=== PATIENT | male | born 1955 | race Caucasian/White ===

== ENCOUNTER 2019-01-28 05:09 | Day surgery (SDC) | payer BC ==
[~2019-01-28] VITALS: Ht 182.9 cm; Wt 107.5 kg
[~2019-01-28 05:09] MED LIST: BAYER CHEWABLE81 MG PO; CBD; MULTI-DAY VITAM1 TAB PO; VITAMIN D31000 UNI2 PO
[2019-01-28 05:38] LABS: HEMATOCRIT 47.2 % (42.0-54.0); HEMOGLOBIN 16.6 g/dL (13.5-17.5); MCH 32.2 pg (26.0-34.0); MCHC 35.2 g/dL (31.0-37.0); MCV 91.5 fL (80.0-100.0); MEAN PLATELET VOLUME 9.9 fL (7.4-10.4); RBC 5.16 10x6/uL (4.20-6.10); RDW 12.4 % (11.5-14.5); WBC 8.6 10x3/uL (4.8-10.8)
[2019-01-28 06:40] VITALS: BP 135/71; Ht 182.9 cm; Wt 107.5 kg
--- NOTE | 2019-01-28 10:24 | OP ---
PATIENT NAME: MAXX HOLDER MEDICAL RECORD: [id number] :57 LOCATION:.FORMERLY [facility] ADMISSION DATE: SURGEON: DEMARIO STROUD MD DATE OF OPERATION: 01/28/2019 SURGEON: Demario Stroud MD ANESTHESIA: TIVA by Raymundo Dietrich CRNA DIAGNOSIS: Elevated PSA of 3.3 on 11/25/2018, bladder outlet obstruction. PROCEDURE: Cystoscopy, transrectal ultrasound and prostate biopsy. FINDINGS: On cystoscopy, bilateral lateral lobe hyperplasia with obstruction, minimal median lobe. Single ureteral orifices bilaterally with no bladder tumors. Transrectal ultrasound 46 gram prostate. SPECIMENS: Prostate biopsy cores. BLOOD LOSS: Minimal. CLINICAL HISTORY: This is a 63-year-old male who has an elevated PSA of 3.3. He has low serum testosterone levels and he is looking to get back on taking supplemental testosterone. He was on supplemental testosterone when he was in [place], [place]. He has some voiding symptoms, namely urgency. There is no family history of prostate cancer. ALLERGIES: He has no drug allergies. 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 DESCRIPTION OF PROCEDURE: The patient was given IV sedation. He was then placed into lithotomy position and prepped and draped. A 21-Nepali cystoscope with 30-degree lens was used for visualization. He does have bilateral lateral lobe obstruction with a relatively long prostatic urethra. Other findings are as outlined above. The bladder was then emptied through the cystoscope sheath and then the scope was removed. We then introduced the transrectal ultrasound probe and obtained prostate size measurements. The prostate size was estimated at 46 grams. Sextant biopsies were obtained with at least 3 cores from each sextant. Once all the specimens were obtained, we then terminated the procedure. I will see the patient in followup in 2 weeks' time to review the pathology with him. TRANSINT:[id number] Voice Confirmation ID: [id number] DOCUMENT ID: [id number] DEMARIO STROUD MD at 1024 CC: [id number] DICTATION DATE: 01/28/19817 CUSTODIAN BLOOD BANK: 01/28/19 0941 [facility] 01/28/19 [place] [address]
== END 2019-01-28 09:15 | disposition home or self-care (01) ==
LOC: D.OPS 05:09
PROVIDERS: Anesthesiology; ATTEND Urology
DX: N40.1 Benign prostatic hyperplasia with lower urinary tract symptoms (principal); N13.8 Other obstructive and reflux uropathy; Z01.812 Encounter for preprocedural laboratory examination

== ENCOUNTER 2019-10-13 12:31 | Emergency (ER) | payer BC ==
[~2019-10-13] VITALS: Ht 182.9 cm; Wt 100.0 kg
[2019-10-13 12:38] VITALS: Ht 182.9 cm; Wt 100.0 kg
[2019-10-13 14:43] VITALS: BP 155/85
== END 2019-10-13 15:45 | disposition other institution (70) ==
LOC: D.ER 12:31
DX: S02.31XA Fracture of orbital floor, right side, initial encounter for closed fracture (principal); W50.0XXA Accidental hit or strike by another person, initial encounter; Y93.9 Activity, unspecified; Y92.9 Unspecified place or not applicable; M54.9 Dorsalgia, unspecified; S63.619A Unspecified sprain of unspecified finger, initial encounter; S02.2XXA Fracture of nasal bones, initial encounter for closed fracture; H53.9 Unspecified visual disturbance